=== PATIENT | female | born 2000 | race African-American/Black ===

== ENCOUNTER 2022-12-27 16:24 | Emergency (ER) | payer BC, OTHER ==
[2022-12-27 16:35] VITALS: BP 119/70; PULSE 79; RESP 18; TEMP 98.2; BMI 27.4
[2022-12-27] MEDS ORDERED: ACETAMINOPHEN 500 MG TABLET (FP) PO ONE (16:51)
[2022-12-27] MEDS ORDERED: IBUPROFEN 600 MG TABLET (FP) PO ONE ×2 (16:51→16:59)
[2022-12-27] MEDS ORDERED: ACETAMINOPHEN 500 MG TABLET (FP) ONE (17:00)
== END 2022-12-27 17:09 | disposition home or self-care (01) ==
LOC: JERFT 16:24
DX: M25.562 Pain in left knee (principal); V03.10XA Pedestrian on foot injured in collision with car, pick-up truck or van in traffic accident, initial encounter; Y93.01 Activity, walking, marching and hiking; Y92.410 Unspecified street and highway as the place of occurrence of the external cause
CPT/HCPCS: 73562-TC-LT-FY; 99283-25